=== PATIENT | female | born 1935 | race American Indian/Alaskan Native ===

== ENCOUNTER 2017-10-13 10:05 | Outpatient (CLI) | payer MEDICARE ==
--- NOTE | 2017-10-13 11:16 | Mammography Report ---
Bilateral mammogram: Compared to 04/24/16. CAD study utilized. Findings: Predominance of adipose tissue bilaterally. No mass or microcalcification. Benign calcifications bilaterally. Normal axillae. Impression: Benign findings. Annual followup recommended. BI-RADS CATEGORY: 2 = Benign ACR BI-RADS MAMMOGRAPHIC CODES: 0 = Needs additional imaging evaluation; 1 = Negative; 2 = Benign; 3 = Probably benign; 4 = Suspicious; 5 = Malignant; 6 = Known biopsy-proven malignancy COMMENT: 1. Dense breast tissue, i.e., adenosis, fibrocystic changes, etc., may obscure an underlying neoplasm. 2. Approximately 10% of cancers are not detected with mammography. 3. A negative mammography report should not delay biopsy if a clinically suspicious mass is present. COMMENT: Patient follow-up letters are generated in [facility].
== END 2017-10-13 10:06 | disposition home or self-care (01) ==
LOC: MAMMO 10:05
PROVIDERS: ATTEND Family Medicine
DX: Z12.31 Encounter for screening mammogram for malignant neoplasm of breast (principal); I10 Essential (primary) hypertension; Z88.6 Allergy status to analgesic agent
CPT/HCPCS: 77067

== ENCOUNTER 2021-09-07 12:44 | Emergency (ER) | payer MEDICARE ==
--- NOTE | 2021-09-07 15:16 | XRay Report ---
ABDOMEN, SINGLE VIEW INDICATION / CLINICAL INFORMATION: Constipation. COMPARISON: None available. FINDINGS: The bowel gas pattern is normal. I do not see an excessive amount of stool present. No visible fecal impaction. Scoliosis of the lumbar spine is incidentally noted. IMPRESSION: No acute finding. Signer Name: Edith Michael MD Signed: 09/07/2021 3:12 PM Workstation Name: [id number]
--- NOTE | 2021-09-07 15:17 | XRay Report ---
CHEST 2 VIEWS INDICATION / CLINICAL INFORMATION: Lightheadedness/Dizziness. COMPARISON: None available. FINDINGS: SUPPORT DEVICES: None. HEART / MEDIASTINUM: No significant abnormality. LUNGS / PLEURA: No significant pulmonary or pleural abnormality. No pneumothorax. ADDITIONAL FINDINGS: Prominent scoliosis of the thoracic spine. IMPRESSION: 1. No acute pulmonary or pleural disease. Signer Name: Edith Michael MD Signed: 09/07/2021 3:13 PM Workstation Name: [id number]
[2021-09-07 15:40] LABS: Hematocrit 38.7 % (30.3-42.9); Hemoglobin 12.2 gm/dl (10.1-14.3); Mean Corpuscular HGB Conc 32 % (30-34); Mean Corpuscular Volume 82 fl (79-97); Platelet Count 254 K/mm3 (140-440); Red Blood Count 4.72 M/mm3 (3.65-5.03); Red Cell Distribution Width 15.4 % (13.2-15.2)
[2021-09-07 15:48] LABS: INR 0.86 (0.87-1.13)
--- NOTE | 2021-09-07 15:55 | Emergency Department Report ---
ED General Adult HPI - General Chief complaint: Dizziness Stated complaint: POSS VERTIGO/DIZZY Source: patient, family Mode of arrival: Ambulatory Limitations: Physical Limitation - History of Present Illness Initial comments: 86-year-old female presents to the ED complaining dizziness months, occasional cough and nausea x2 months. She states that she has had some allergy symptoms in the past. Patient states that she has had a history of vertigo but the room is not spinning at present time. Patient states that she has been evaluated by her primary care doctor and is due to go back next week. Denies any chest pain ,shortness of breath ,abdominal pain at present time. Patient states that symptoms are worse at nighttime when she lays down as the reason she came to the ER today. She denies taking any nmnh-ena-uiijxad medication. States history of hypertension, hyperlipidemia and mitral valve prolapse. Severity scale (0 -10): 2 - Related Data Home Medications Medication Instructions Recorded Confirmed Last Taken Lisinopril 20 mg PO QDAY 09/07/21 09/07/21 Unknown Pravastatin 40 mg PO QDAY 09/07/21 09/07/21 Unknown Previous Rx's Medication Instructions Recorded Last Taken Type Amoxicillin [Amoxicillin TAB] 875 mg PO BID 7 Days #14 tab 09/07/21 Unknown Rx Allergies Allergy/AdvReac Type Severity Reaction Status Date / Time diltiazem Allergy Anaphylaxis Verified 09/07/21 14:20 naproxen [From Naprosyn] Allergy Unknown Verified 09/07/21 14:20 ED Review of Systems ROS: Stated complaint: POSS VERTIGO/DIZZY Other details as noted in HPI Constitutional: denies: chills, fever Eyes: denies: eye pain, eye discharge, vision change ENT: denies: ear pain, throat pain Respiratory: cough. denies: shortness of breath, wheezing Cardiovascular: denies: chest pain, palpitations Endocrine: no symptoms reported Gastrointestinal: denies: abdominal pain, nausea, diarrhea Genitourinary: denies: urgency, dysuria, discharge Musculoskeletal: denies: back pain, joint swelling, arthralgia Skin: denies: rash, lesions Neurological: denies: headache, weakness, paresthesias Psychiatric: denies: anxiety, depression Hematological/Lymphatic: denies: easy bleeding, easy bruising ED Past Medical Hx - Past Medical History Previous Medical History?: Yes Hx Hypertension: Yes Additional medical history: HLN, Right knee pain, Righ leg pain - Surgical History Past Surgical History?: No - Social History Smoking Status: Never Smoker Substance Use Type: None - Medications Home Medications: Home Medications Medication Instructions Recorded Confirmed Last Taken Type Amoxicillin [Amoxicillin TAB] 875 mg PO BID 7 Days #14 tab 09/07/21 Unknown Rx Lisinopril 20 mg PO QDAY 09/07/21 09/07/21 Unknown History Pravastatin 40 mg PO QDAY 09/07/21 09/07/21 Unknown History ED Physical Exam - General Limitations: Physical Limitation General appearance: alert, in no apparent distress - Head Head exam: Present: atraumatic, normocephalic - Eye Eye exam: Present: normal appearance - ENT ENT exam: Present: mucous membranes moist - Neck Neck exam: Present: normal inspection - Respiratory Respiratory exam: Present: normal lung sounds bilaterally. Absent: respiratory distress - Cardiovascular Cardiovascular Exam: Present: regular rate, normal rhythm. Absent: systolic murmur, diastolic murmur, rubs, gallop - GI/Abdominal GI/Abdominal exam: Present: soft, normal bowel sounds - Extremities Exam Extremities exam: Present: normal inspection - Back Exam Back exam: Present: normal inspection - Neurological Exam Neurological exam: Present: alert, oriented X3 - Psychiatric Psychiatric exam: Present: normal affect, normal mood - Skin Skin exam: Present: warm, dry, intact, normal color. Absent: rash ED Course Vital Signs 09/07/21 12:55 Temperature 97 F L Pulse Rate 91 H Respiratory 18 Rate Blood Pressure 134/68 [Right] O2 Sat by Pulse 97 Oximetry ED Medical Decision Making - Lab Data Result diagrams: 09/07/21 15:14 09/07/21 15:14 - EKG Data EKG shows normal: sinus rhythm Rate: normal - EKG Data Rate 77 pronlong Pr internal RBBB and LAFB 09/07/21 17:01 r - Medical Decision Making 86-year-old female presents to the ED complaining dizziness months, occasional cough and nausea x2 months. She states that she has had some allergy symptoms in the past. Patient states that she has had a history of vertigo but the room is not spinning at present time. Patient states that she has been evaluated by her primary care doctor and is due to go back next week. Denies any chest pain ,shortness of breath ,abdominal pain at present time. Patient states that symptoms are worse at nighttime when she lays down as the reason she came to the ER today. She denies taking any zvco-lfo-uufkadx medication. States history of hypertension, hyperlipidemia and mitral valve prolapse. Physical examination is unremarkable. She does have some postnasal drainage drip noted. Rechecked the patient is resting quietly quietly and comfortable and feeling better. I discussed the results of diagnostic study, my clinical impression and the plan for further treatment with the patient. Patient agrees with plan and discharge at this present time. All question addressed. I have given the patient instruction regarding a diagnosis ,expectation ,follow- up and return precaution. I explained to the patient that emergent condition may arise and to return to the ED for new worsen and any new persisting condition. I have explained the importance of following up with the primary care physician or referral physician listed below has instructed. The patient verbalized understanding of discharge instruction. Critical care attestation.: If time is entered above; I have spent that time in minutes in the direct care of this critically ill patient, excluding procedure time. ED Disposition Clinical Impression: Sinusitis Qualifiers: Sinusitis location: frontal Chronicity: acute Recurrence: non-recurrent Qualified Code(s): J01.10 - Acute frontal sinusitis, unspecified Disposition: 01 HOME / SELF CARE / HOMELESS Is pt being admited?: No Does the pt Need Aspirin: No Condition: Stable Instructions: Sinusitis, Adult, [id number]-[id number] Additional Instructions: Take medication as prescribed Keep appointment with primary care doctor for next week Return to the ED for any worsening symptoms Prescriptions: Amoxicillin [Amoxicillin TAB] 875 mg PO BID 7 Days #14 tab Referrals: ASHELY BRIDGES MD [Staff Physician] - 3-5 Days Time of Disposition: 16:58
[2021-09-07 16:36] LABS: Creatine Kinase MB 1.2 ng/mL (0.0-4.0)
[2021-09-07 16:37] LABS: Bilirubin,Urine NEG (Negative); Blood,Urine SM (Negative); Color,Urine Straw (Yellow); Protein,Urine <15 mg/dL mg/dL (Negative); Urobilinogen,Urine < 2.0 mg/dL (<2.0)
[2021-09-07 16:38] LABS: Alanine Aminotransferase 10 units/L (7-56); Albumin 4.3 g/dL (3.9-5); BUN/Creatinine Ratio 13; Blood Urea Nitrogen 12 mg/dL (7-17); Calcium 9.6 mg/dL (8.4-10.2); Hemolysis Index 2
[2021-09-07 16:41] LABS: Mucus,Urine FEW /HPF; WBC,Urine < 1.0 /HPF (0.0-6.0)
[2021-09-07 17:14] VITALS: BP 130/76
--- NOTE | 2021-09-09 13:08 | Electrocardiograph Report ---
[facility] Test Date: 2021-09-07 Test Time: 15:33:58 Pat Name: SANTINO LEIGH Department: Room: Gender: F Pit Clerk: ER : [id number] Requested By: CHIDI MEDINA Order Number: [id number] Reading MD: Michelet Madrid Measurements Intervals Zullinger Rate: 72 P: 63 LA: 290 QRS: -55 QRSD: 137 T: -7 QT: 444 QTc: 487 Interpretive Statements Sinus rhythm Prolonged LA interval RBBB and LAFB No previous ECG available for comparison Electronically Signed On 09-09-2021 13:08:20 EDT by Michelet Madrid
== END 2021-09-07 17:22 | disposition home or self-care (01) ==
LOC: ED 12:44
DX: J32.9 Chronic sinusitis, unspecified (principal); I10 Essential (primary) hypertension; Z91.09 Other allergy status, other than to drugs and biological substances; Z79.899 Other long term (current) drug therapy
CPT/HCPCS: 36415; 71046; 74018; 80053; 81001; 82550; 82553; 84484; 85027; 85610; 93005; 99284